=== PATIENT | male | born 2000 | race Caucasian/White ===

== ENCOUNTER 2019-04-22 20:29 | Observation (INO) | payer OTHER, SELFPAY ==
[2019-04-22 20:30] VITALS: BP 106/73; PULSE 92; RESP 15; TEMP 36.4; BMI 23.1
[2019-04-22] MEDS: 0.9% Normal Saline 1,000 ML 999 ML IV ×3 (21:38→23:45)
[2019-04-22 21:57] LABS: Anion Gap 13 (5-15); BUN 44 mg/dL (7-18); BUN/Creat Ratio 20.8 RATIO (10-20); Calcium,Total 10.4 mg/dL (8.5-10.1); Chloride 94 mmol/L (98-107); Creatinine, Serum 2.12 mg/dL (0.70-1.30); EST Glomerular Filtration Rate 42 mL/min (>60); Est Glom Filt Rate - Afr Amer 51 mL/min (>60); Estimated Creatinine Clearance 64.19 ml/min; Glucose 93 mg/dL (74-106); Potassium 3.6 mmol/L (3.5-5.1); Sodium Level 126 mmol/L (136-145)
[2019-04-22 22:22] LABS: Absolute Neutrophil Count 19.4 X10^3/uL (2.0-7.7); Basophil# 0.04 X10^3/uL; Basophil% 0.2 % (0-1); Eosinophil# 0.04 X10^3/uL; Eosinophils% 0.2 % (0-5); Hematocrit 49.5 % (40-54); Hemoglobin 17.2 g/dL (13.0-16.5); Lymphocyte % 6.2 % (19-41); Mean Corp Hgb Conc 34.7 g/dL (32-36); Mean Corpuscular Hgb 28.5 pg (27.0-32.0); Mean Corpuscular Volume 82.1 fL (80-94); Mean Platelet Vol. 11.1 fl (6.2-12.0); Monocyte# 1.47 X10^3/uL; Monocyte% 6.5 % (0-10); NRBC Flagged by Analyzer 0 % (0-5); Neutrophil # 19.36 X10^3/uL (2.7-7.7); Platelet Count 333 K/mm3 (150-450); RBC Distribution Width CV 13.8 % (11.6-14.6); RBC Distribution Width SD 40.3 fl (35.1-43.9); Red Blood Count 6.03 M/mm3 (4.6-6.2); White Blood Count 22.5 K/mm3 (4.4-11.0)
[2019-04-22 22:31] VITALS: BP 117/63; PULSE 71; RESP 19; O2SAT 100
[2019-04-22 22:53] LABS: CPK Total, Creatine Kinase 2726 U/L (39-308)
--- NOTE | 2019-04-22 23:25 | ED.VISSUMM ---
- ER Visit Summary Date of Service: 04/22/19 Chief Complaint: Leg cramping History of Present Illness: The patient is a 18 M presenting with bilateral leg cramping. Patient had 2 soccer practices today. He states he ran for 3 to 4 hours. He did not drink as much water as he should. He did not eat much today. He states that at the end of the second practice he started having severe leg cramping. He was barely able to ambulate. He denies chest pain or shortness of breath. Denies other complaints. Physical Examination: Vitals are stable. Patient is afebrile. Alert no acute distress. HEENT exam is unremarkable. Neck is supple. Lungs are clear and equal bilaterally. Heart is regular rate and rhythm. Abdomen is soft nontender nondistended. Extremities are unremarkable. Normal distal pulses Skin is warm and dry. No focal neurologic deficit. Remainder of exam is unremarkable. Emergency Department Course and Treatment: CBC shows white count 22.5. Chemistry showed sodium 126, CO2 19, BUN 44, creatinine 2.12. CK 2726. Patient was given IV fluids. Discussed with the hospitalist for admission. Disposition: Observation Impression: Rhabdomyolysis, NATASHA This note was generated with [employer] dictation software. It may contain incorrect words, spelling, and punctuation that were not noted in review of the chart prior to signing ED Disposition - Plan for ED Patient: Referrals: Care Physician,No Primary [Primary Care Provider] -
--- NOTE | 2019-04-22 23:27 | PCM.HP.STD ---
Problem List (1) ADHD Status: Chronic (2) Chronic stable asthma Status: Chronic (3) Acute kidney injury Status: Acute (4) Mild rhabdomyolysis Status: Acute History of Present Illness Date of Admission: 04/22/19 Chief Complaint: Leg cramps not able to walk or run during soccer practice much The patient is a 18 year old M was brought into ER for bilateral leg cramping's. Patient had to soccer practice today and was running for 3 to 4 hours. Patient was also dehydrated and feeling thirsty did not drink much water and his urine was dark yellow color and decreased in quantity and frequency in the morning. He was not able to run and was barely able to walk. Denies any symptoms of fever, chills or burning micturition. Patient has a history of ADHD and asthma. [] Past Medical History Past Medical History (Chronic Problems): Chronic Problems ADHD (Chronic) Chronic stable asthma (Chronic) Allergies No Known Allergies Allergy (Verified 04/22/19 20:34) Home Medications: Ambulatory Orders Medication Instructions Recorded Albuterol Inhaler [Ventolin Hfa 1 puff INHALATION Q4H PRN PRN 04/22/19 (SP)] Cetirizine HCl [Zyrtec] 10 mg PO DAILY 04/22/19 Guanfacine HCl [Intuniv] 3 mg PO DAILY 04/22/19 Lisdexamfetamine Dimesylate 70 mg PO DAILY 04/22/19 [Vyvanse] Montelukast [Singulair] 10 mg PO DAILY 04/22/19 Dextroamphetamine Sulfate 10 mg PO DAILY PRN PRN 04/23/19 Smoking Status: Never smoker - *Family History Paternal History Items: No pertinent history Review of Systems Constitutional: Denies: Chills, Fever, Weight Change HEENT: Denies: Head Aches, Sinus Congestion, Sinus Drainage Cardiovascular: Denies: Chest Pain, Palpitations Respiratory: Denies: Cough, Shortness of breath at rest, Sputum production Gastrointestinal: Denies: Abdominal Pain, Nausea, Vomiting Genitourinary: Denies: Dysuria Musculoskeletal: Reports: Leg Pain, Muscle pain. Denies: Joint Pain, Joint Tenderness Skin: Denies: Rash, Wounds Neurological: Denies: Numbness, Tingling, Focal weakness Psychiatric: Denies: Anxiety, Depression, Homicidal Ideations, Suicidal Ideations Hematologic/ Lymphatic: Denies: Easy Bruising, Easy Bleeding VTE Information - Inpt Only VTE Present on Admission: No VTE Mechan Device Prophylaxis: None VTE Pharm Prophylaxis ordered?: No Reason prophylaxis not ordered:: Procedure Not Indicated Patient Problems: Active and Suspected Problems Acute kidney injury (Acute) Mild rhabdomyolysis (Acute) - Physical Exam General: Alert, Oriented x3, Cooperative HEENT: Atraumatic, PERRLA, EOMI, Normocephalic Neck: Supple, No JVD, Negative Carotid Bruits Lungs: Clear to auscultation, Normal air movement, No rhonchi, No wheeze, No rales Cardiovascular: Regular rate, Regular Rhythm, Normal S1, Normal S2, No murmurs Abdomen: Bowel Sounds Present, Soft, Non Tender, Non-Distended Extremities: No edema, Capillary Refill Less than 3 Seconds Skin: No rashes, No breakdown Musculoskeletal: Tenderness - Mild calf muscle tenderness. Neurological: Cranial nerves II-XII grossly intact, Deep Tendon Reflexes 2+/4 and Symmetrical, Neuro grossly intact, Motor Exam 5/5 strength throughout Psych/Mental Status: Normal Affect, Appropriate Vital Signs Temp Pulse Resp BP Pulse Ox 97.5 F L 71 19 H 117/63 100 04/22/19 20:30 04/22/19 22:31 04/22/19 22:31 04/22/19 22:31 04/22/19 22:31 Oxygen Delivery Method Room Air Weight: 180 lb Body Mass Index (BMI) 23.1 Laboratory Tests Past 24 Hrs 04/22/19 04/22/19 04/22/19 21:28 21:28 21:28 WBC 22.5 H RBC 6.03 Hgb 17.2 H Hct 49.5 MCV 82.1 MCH 28.5 MCHC 34.7 RDW Std Deviation 40.3 RDW Coeff of Yo 13.8 Plt Count 333 MPV 11.1 Immature Gran % (Auto) 0.900 Neut % (Auto) 86.0 H Lymph % (Auto) 6.2 L [place] % (Auto) 6.5 Eos % (Auto) 0.2 Baso % (Auto) 0.2 Absolute Neuts (auto) 19.4 H Absolute Lymphs (auto) 1.40 Nucleated RBC % 0 Sodium 126 L Potassium 3.6 Chloride 94 L Carbon Dioxide 19.0 L Anion Gap 13 BUN 44 H Creatinine 2.12 H Estim Creat Clear Calc 64.19 Est GFR (MDRD) Af Amer 51 L Est GFR (MDRD) Non-Af 42 L BUN/Creatinine Ratio 20.8 H Glucose 93 Calcium 10.4 H Total Creatine Kinase 2726 H Assessment/Plan All Active Problems Acute kidney injury (Acute) Mild rhabdomyolysis (Acute) This 18-year-old gentleman was admitted with bilateral leg cramping with unable to run and barely ambulate with elevated BUN/creatinine 44/2.2 and total CK 2726 consistent with acute kidney injury with mild rhabdomyolysis. 1. Acute kidney injury most probably prerenal secondary to dehydration: Patient is being admitted on MedSurg floor. Patient had 2 L of mostly in ER and is going to get another liter of normal saline bolus. After that, continue IV fluid normal saline 150 mils per hour. Monitor intake and output. Monitor CK and BMP daily. UA is ordered. 2. Hyponatremia with hypochloremia, non-anion gap metabolic acidosis: Patient sodium is 126, chloride 94, CO2 19 with anion gap 13. Is mostly related to hypovolemia. IV fluid resuscitation. K. Dur 40 M EQ 1 dose ordered. Monitor BMP daily. 3. Mild rhabdomyolysis: As mentioned above. 4. Other chronic comorbidities include ADHD, chronic stable asthma: Patient is on dextroamphetamine, Singulair and other nerve pills. Home medication and sedation done. DVT prophylaxis: Low risk. Early ambulation encouraged. No prophylaxis indicated. Code Visit Inpatient E&M: 29218 Init Hosp L3
[2019-04-22 23:42] VITALS: BP 113/68; PULSE 78; RESP 19; O2SAT 100
[2019-04-23 00:55] VITALS: BMI 23.2
[2019-04-23 01:44] VITALS: BP 133/60; PULSE 84; RESP 18; TEMP 36.4; O2SAT 100
[2019-04-23 04:25] VITALS: BP 120/53; PULSE 53; RESP 18; TEMP 36.4; O2SAT 100
[2019-04-23 06:17] LABS: Mucous, Urine 0 SEEN /hpf (<or=2+); Red Blood Cells-Urine 0 SEEN /hpf (0-5); White Blood Cells 0 SEEN /hpf (0-5)
[2019-04-23 06:26] LABS: Color, Urine Yellow (Yellow); Glucose, Dipstick Normal (Normal); Ketone-Dipstick 50 mg/dl (Negative); Leukocyte Esterase-Dipstick Negative /ul (Negative); Nitrite-Dipstick Negative (Negative); Occult Blood-Urine Negative /ul (Negative); Protein-Dipstick 15 mg/dl (Negative); Specific Gravity, Urine 1.025 (1.002-1.030); Urine Bilirubin Dipstick Negative (Negative); Urine Clarity Clear (Clear); Urine Urobilinogen Normal (Normal)
[2019-04-23 06:36] LABS: Bacteria RARE /hpf (None Seen); Coarse Granular Cast 0-5 SEEN /lpf (0-5 /lpf); Hyaline Cast 0-5 SEEN /lpf (0-5); Squamous Epithelial Cells - UA 0-5 SEEN /hpf (0-5)
--- NOTE | 2019-04-23 06:58 | PCM.PROGNOTE ---
Patient Problems: Active and Suspected Problems Acute kidney injury (Acute) Mild rhabdomyolysis (Acute) Subjective: The patient is a 18-year-old male with a past medical history of asthma and ADHD who presented to the emergency department at [facility] on 04/22/2019 complaining of cramping in his legs with difficulty walking after running 3 to 4 hours in soccer practice. Vital signs at presentation to the emergency room were temperature 97.5, pulse rate 92, blood pressure 106/73, respiratory rate 15 and he was 100% saturated on room air. CBC was remarkable for an elevated white blood cell count at 22.5 with a left shift. Hemoglobin was 17.2 and platelets were within normal limits. Sodium was low at 126 and the chloride was low at 94. Serum bicarb was low at 19 and the BUN was elevated at 44 with a creatinine of 2.12. Calcium was high at 10.4 and the total CK was 2726. Urine was unremarkable other than the specific gravity was high at 1.025. Urine myoglobin was not ordered. He was given 2 L of normal saline in the emergency department and 1/3 L of normal saline following admission. Currently is on normal saline at 150 cc an hour. Afebrile, stable vital signs, heart rate was 53 when last checked. He is 100% saturated on room air. - Physical Exam Vital Signs Temp Pulse Resp BP Pulse Ox 97.6 F L 53 L 18 120/53 L 100 04/23/19 04:25 04/23/19 04:25 04/23/19 04:25 04/23/19 04:25 04/23/19 04:25 Oxygen Delivery Method Room Air Weight: 180 lb 15.992 oz Body Mass Index (BMI) 23.2 Laboratory Tests Past 24 Hrs 04/22/19 04/22/19 04/22/19 21:28 21:28 21:28 WBC 22.5 H RBC 6.03 Hgb 17.2 H Hct 49.5 MCV 82.1 MCH 28.5 MCHC 34.7 RDW Std Deviation 40.3 RDW Coeff of Yo 13.8 Plt Count 333 MPV 11.1 Immature Gran % (Auto) 0.900 Neut % (Auto) 86.0 H Lymph % (Auto) 6.2 L [place] % (Auto) 6.5 Eos % (Auto) 0.2 Baso % (Auto) 0.2 Absolute Neuts (auto) 19.4 H Absolute Lymphs (auto) 1.40 Nucleated RBC % 0 Sodium 126 L Potassium 3.6 Chloride 94 L Carbon Dioxide 19.0 L Anion Gap 13 BUN 44 H Creatinine 2.12 H Estim Creat Clear Calc 64.19 Est GFR (MDRD) Af Amer 51 L Est GFR (MDRD) Non-Af 42 L BUN/Creatinine Ratio 20.8 H Glucose 93 Calcium 10.4 H Total Creatine Kinase 2726 H Urine Color Urine Clarity Urine pH Ur Specific [place] Urine Protein Urine Glucose (UA) Urine Ketones Urine Occult Blood Urine Nitrite Urine Bilirubin Urine Urobilinogen Ur Leukocyte Esterase Urine RBC Urine WBC Ur Squamous Epith Cells Urine Bacteria Hyaline Casts Coarse Granular Casts Urine Mucus 04/23/19 Unknown WBC RBC Hgb Hct MCV MCH MCHC RDW Std Deviation RDW Coeff of Yo Plt Count MPV Immature Gran % (Auto) Neut % (Auto) Lymph % (Auto) [place] % (Auto) Eos % (Auto) Baso % (Auto) Absolute Neuts (auto) Absolute Lymphs (auto) Nucleated RBC % Sodium Potassium Chloride Carbon Dioxide Anion Gap BUN Creatinine Estim Creat Clear Calc Est GFR (MDRD) Af Amer Est GFR (MDRD) Non-Af BUN/Creatinine Ratio Glucose Calcium Total Creatine Kinase Urine Color Yellow Urine Clarity Clear Urine pH 5.0 Ur Specific [place] 1.025 Urine Protein 15 H Urine Glucose (UA) Normal Urine Ketones 50 H Urine Occult Blood Negative Urine Nitrite Negative Urine Bilirubin Negative Urine Urobilinogen Normal Ur Leukocyte Esterase Negative Urine RBC 0 SEEN Urine WBC 0 SEEN Ur Squamous Epith Cells 0-5 SEEN Urine Bacteria RARE Hyaline Casts 0-5 SEEN Coarse Granular Casts 0-5 SEEN Urine Mucus 0 SEEN Medical Necessity - Tobacco Use Smoking Status: Never smoker Assessment/Plan All Active Problems Acute kidney injury (Acute) Mild rhabdomyolysis (Acute)
[2019-04-23 08:07] LABS: Hematocrit 41.8 % (40-54); Mean Corp Hgb Conc 33.5 g/dL (32-36); Mean Corpuscular Hgb 28.3 pg (27.0-32.0); Mean Corpuscular Volume 84.6 fL (80-94); Mean Platelet Vol. 10.8 fl (6.2-12.0); Platelet Count 265 K/mm3 (150-450); RBC Distribution Width CV 14.1 % (11.6-14.6); RBC Distribution Width SD 43.9 fl (35.1-43.9); Red Blood Count 4.94 M/mm3 (4.6-6.2); White Blood Count 12.8 K/mm3 (4.4-11.0)
[2019-04-23 08:24] LABS: Anion Gap 8 (5-15); BUN 32 mg/dL (7-18); BUN/Creat Ratio 26.9 RATIO (10-20); Calcium,Total 8.9 mg/dL (8.5-10.1); Chloride 106 mmol/L (98-107); Creatinine, Serum 1.19 mg/dL (0.70-1.30); EST Glomerular Filtration Rate 82 mL/min (>60); Est Glom Filt Rate - Afr Amer 99 mL/min (>60); Estimated Creatinine Clearance 114.99 ml/min; Glucose 82 mg/dL (74-106); Magnesium 2.4 mg/dL (1.6-2.6); Phosphorus 3.7 mg/dL (2.5-4.9); Potassium 3.8 mmol/L (3.5-5.1); Sodium Level 135 mmol/L (136-145)
[2019-04-23 08:43] LABS: CPK Total, Creatine Kinase 4545 U/L (39-308)
[2019-04-23 09:10] VITALS: BP 101/49; PULSE 76; RESP 14; TEMP 36.3; O2SAT 100
--- NOTE | 2019-04-23 09:49 | PCM.DC ---
- Discharge Diagnoses Current Active Problems: Current Active and Chronic Problems ADHD (Chronic) Chronic stable asthma (Chronic) Acute kidney injury (Acute) Mild rhabdomyolysis (Acute) You will use the following diet at home:: No restrictions Your food should be the consistency of: Regular Your liquids should be the consistency of: Regular/Thin Discharge Activity: - - Rest and do not exert yourself until Thursday or Thursday. You can start practising on thursday or Thursday. Call your doctor if you observe: Fever of 101 or Higher, Shortness of breath, Dizziness, Fainting spells, Calf discomfort, Uncontrolled pain, - - extreme fatigue, recurrent muscle pain, decreased urine output, dark tea colored urine Additional Instructions: You must drink enough fluid to keep your urine a very pale yellow/almost clear. If you urine is bright yellow or orange or brown you need to drink more. You are taking 2 different forms of Amphetammine. A long acting drug you take once a day and short acting amphetamine as needed. Do not take the short acting amphetamine for at least 4 hours prior to practise or games. Amphetamines can cause rhabdomyolysis which is the breakdown of muscle........this leads to an increased breakdown product of muscle called creatine kinase in the blood and this can cause kidney failure. Continue to drink a lot of water today. If the leg pains increase as the day goes on come back to the ER. Have a great time in [place]! Pending Tests on Discharge: none Allergies/Adverse Reactions: Allergies No Known Allergies Allergy (Verified 04/22/19 20:34) Medications to take at Discharge Albuterol Inhaler [Ventolin Hfa] 1 puff INHALATION Q4H PRN PRN 04/22/19 Cetirizine HCl [Zyrtec] 10 mg PO DAILY 04/22/19 Guanfacine HCl [Intuniv] 3 mg PO DAILY 04/22/19 Lisdexamfetamine Dimesylate [Vyvanse] 70 mg PO DAILY 04/22/19 Montelukast [Singulair] 10 mg PO DAILY 04/22/19 Dextroamphetamine Sulfate 10 mg PO DAILY PRN PRN 04/23/19 Primary Care Physician: Care Physician,No Primary [Primary Care Provider] - Test Results: Test results from this visit will be discussed in further detail at your follow-up appointment, if applicable. Proposed Discharge Date: 04/23/19
--- NOTE | 2019-04-23 10:05 | PCM.DC.SUM ---
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) - for ADHD ADHD (Chronic) Stable asthma (Chronic) Hospital Course and Treatment Imaging Results: Laboratory Results - last 24 hr 04/22/19 04/22/19 04/22/19 21:28 21:28 21:28 WBC 22.5 H RBC 6.03 Hgb 17.2 H Hct 49.5 MCV 82.1 MCH 28.5 MCHC 34.7 RDW Std Deviation 40.3 RDW Coeff of Yo 13.8 Plt Count 333 MPV 11.1 Immature Gran % (Auto) 0.900 Neut % (Auto) 86.0 H Lymph % (Auto) 6.2 L [place] % (Auto) 6.5 Eos % (Auto) 0.2 Baso % (Auto) 0.2 Absolute Neuts (auto) 19.4 H Absolute Lymphs (auto) 1.40 Nucleated RBC % 0 Sodium 126 L Potassium 3.6 Chloride 94 L Carbon Dioxide 19.0 L Anion Gap 13 BUN 44 H Creatinine 2.12 H Estim Creat Clear Calc 64.19 Est GFR (MDRD) Af Amer 51 L Est GFR (MDRD) Non-Af 42 L BUN/Creatinine Ratio 20.8 H Glucose 93 Calcium 10.4 H Phosphorus Magnesium Total Creatine Kinase 2726 H Urine Color Urine Clarity Urine pH Ur Specific [place] Urine Protein Urine Glucose (UA) Urine Ketones Urine Occult Blood Urine Nitrite Urine Bilirubin Urine Urobilinogen Ur Leukocyte Esterase Urine RBC Urine WBC Ur Squamous Epith Cells Urine Bacteria Hyaline Casts Coarse Granular Casts Urine Mucus 04/23/19 04/23/19 04/23/19 07:42 07:42 07:42 WBC 12.8 H RBC 4.94 Hgb 14.0 Hct 41.8 MCV 84.6 MCH 28.3 MCHC 33.5 RDW Std Deviation 43.9 RDW Coeff of Yo 14.1 Plt Count 265 MPV 10.8 Immature Gran % (Auto) Neut % (Auto) Lymph % (Auto) [place] % (Auto) Eos % (Auto) Baso % (Auto) Absolute Neuts (auto) Absolute Lymphs (auto) Nucleated RBC % Sodium 135 L Potassium 3.8 Chloride 106 Carbon Dioxide 21.0 Anion Gap 8 BUN 32 H Creatinine 1.19 Estim Creat Clear Calc 114.99 Est GFR (MDRD) Af Amer 99 Est GFR (MDRD) Non-Af 82 BUN/Creatinine Ratio 26.9 H Glucose 82 Calcium 8.9 Phosphorus 3.7 Magnesium 2.4 Total Creatine Kinase 4545 H Urine Color Urine Clarity Urine pH Ur Specific [place] Urine Protein Urine Glucose (UA) Urine Ketones Urine Occult Blood Urine Nitrite Urine Bilirubin Urine Urobilinogen Ur Leukocyte Esterase Urine RBC Urine WBC Ur Squamous Epith Cells Urine Bacteria Hyaline Casts Coarse Granular Casts Urine Mucus 04/23/19 Unknown WBC RBC Hgb Hct MCV MCH MCHC RDW Std Deviation RDW Coeff of Yo Plt Count MPV Immature Gran % (Auto) Neut % (Auto) Lymph % (Auto) [place] % (Auto) Eos % (Auto) Baso % (Auto) Absolute Neuts (auto) Absolute Lymphs (auto) Nucleated RBC % Sodium Potassium Chloride Carbon Dioxide Anion Gap BUN Creatinine Estim Creat Clear Calc Est GFR (MDRD) Af Amer Est GFR (MDRD) Non-Af BUN/Creatinine Ratio Glucose Calcium Phosphorus Magnesium Total Creatine Kinase Urine Color Yellow Urine Clarity Clear Urine pH 5.0 Ur Specific [place] 1.025 Urine Protein 15 H Urine Glucose (UA) Normal Urine Ketones 50 H Urine Occult Blood Negative Urine Nitrite Negative Urine Bilirubin Negative Urine Urobilinogen Normal Ur Leukocyte Esterase Negative Urine RBC 0 SEEN Urine WBC 0 SEEN Ur Squamous Epith Cells 0-5 SEEN Urine Bacteria RARE Hyaline Casts 0-5 SEEN Coarse Granular Casts 0-5 SEEN Urine Mucus 0 SEEN none Operations: None Procedures: None Summary of Care Provided: The patient is a 18-year-old male with a past medical history of asthma and ADHD who presented to the emergency department at [facility] on 04/22/2019 complaining of cramping in his legs with difficulty walking due to pain after running 3 to 4 hours in soccer practice. Vital signs at presentation to the emergency room were temperature 97.5, pulse rate 92, blood pressure 106/73, respiratory rate 15 and he was 100% saturated on room air. CBC was remarkable for an elevated white blood cell count at 22.5 with a left shift. Hemoglobin was 17.2 and platelets were within normal limits. Sodium was low at 126 and the chloride was low at 94. Serum bicarb was low at 19 and the BUN was elevated at 44 with a creatinine of 2.12. Calcium was high at 10.4 and the total CK was 2726. Urine was unremarkable other than the specific gravity was high at 1.025. Urine myoglobin was not ordered. He was given 2 L of normal saline in the emergency department and a third liter bolus following admission. He was then started on NS at 150 cc/hr. repeat lab on 04/23/2019 showed a white blood cell count of 12.8, down from 22.5 at admission with a hemoglobin of 14 and normal platelets. The sodium was up to 135 following hydration from 126 at admission. Metabolic acidosis had resolved and the BUN was down to 32 with a creatinine of 1.19, down from 2.12 at admission. The pain in his legs was much improved and he was able to ambulate without difficulty. He said they felt like they did after a normal practise. An order was placed for an additional 2 L of NS at 500 cc/hr. He was discharged home and was clear to fly to [place] on 04/24/19 with his soccer team but, instructed not to participate in any exertional activities until 04/26. Since dextroamphetamine can cause rhabdomyolysis he was advised to continue the long-acting amphetamine once daily but not to use short acting dextroamphetamine for at least 4 hours prior to any exertion. He was advised to stay well-hydrated and drink enough water to keep his urine and very pale yellow to clear, especially on days when he is exercising. He will return to the emergency room if his leg pain should escalate following discharge or he is unable to urinate. PHYSICAL EXAM: GENERAL: alert, oriented X 3, Cooperative, NAD ORAL: moist mucosa, no mucosal lesions NECK: No JVD, supple, trachea midline LUNGS: CTA, symmetric chest expansion HEART: RRR, Normal S1 and S2, no rub, no gallop ABDOMEN: soft, NT, ND, BS present, no guarding with palpation EXTREMITIES: no edema, no cyanosis, no calf tenderness, the muscles of the LE's are soft with no pain with compression and there is no evidence of compartment syndrome. SKIN: No rashes, no breakdown NEUROLOGIC: no focal neurologic deficits PSYCH: appropriate, normal affect, pleasant This note was generated with [employer] dictation software. It may contain incorrect words, spelling, and punctuation that were not noted in checking the note before signing. Patient Problems: Active and Suspected Problems Exertional rhabdomyolysis (Acute) Ketonuria (Acute) Dehydration after exertion (Acute) Hyponatremia (Acute) - Physical Exam Vital Signs Temp Pulse Resp BP Pulse Ox 97.4 F L 76 14 101/49 L 100 04/23/19 09:10 04/23/19 09:10 04/23/19 09:10 04/23/19 09:10 04/23/19 09:10 Oxygen Delivery Method Room Air Weight: 180 lb 15.992 oz Body Mass Index (BMI) 23.2 Intake and Output for Last 24 Hours 04/21/19 04/22/19 04/23/19 23:59 23:59 23:59 Intake Total 2700 / 2700 Balance 2700 / 2700 Laboratory Tests Past 24 Hrs 04/22/19 04/22/19 04/22/19 21:28 21:28 21:28 WBC 22.5 H RBC 6.03 Hgb 17.2 H Hct 49.5 MCV 82.1 MCH 28.5 MCHC 34.7 RDW Std Deviation 40.3 RDW Coeff of Yo 13.8 Plt Count 333 MPV 11.1 Immature Gran % (Auto) 0.900 Neut % (Auto) 86.0 H Lymph % (Auto) 6.2 L [place] % (Auto) 6.5 Eos % (Auto) 0.2 Baso % (Auto) 0.2 Absolute Neuts (auto) 19.4 H Absolute Lymphs (auto) 1.40 Nucleated RBC % 0 Sodium 126 L Potassium 3.6 Chloride 94 L Carbon Dioxide 19.0 L Anion Gap 13 BUN 44 H Creatinine 2.12 H Estim Creat Clear Calc 64.19 Est GFR (MDRD) Af Amer 51 L Est GFR (MDRD) Non-Af 42 L BUN/Creatinine Ratio 20.8 H Glucose 93 Calcium 10.4 H Phosphorus Magnesium Total Creatine Kinase 2726 H Urine Color Urine Clarity Urine pH Ur Specific [place] Urine Protein Urine Glucose (UA) Urine Ketones Urine Occult Blood Urine Nitrite Urine Bilirubin Urine Urobilinogen Ur Leukocyte Esterase Urine RBC Urine WBC Ur Squamous Epith Cells Urine Bacteria Hyaline Casts Coarse Granular Casts Urine Mucus 04/23/19 04/23/19 04/23/19 07:42 07:42 07:42 WBC 12.8 H RBC 4.94 Hgb 14.0 Hct 41.8 MCV 84.6 MCH 28.3 MCHC 33.5 RDW Std Deviation 43.9 RDW Coeff of Yo 14.1 Plt Count 265 MPV 10.8 Immature Gran % (Auto) Neut % (Auto) Lymph % (Auto) [place] % (Auto) Eos % (Auto) Baso % (Auto) Absolute Neuts (auto) Absolute Lymphs (auto) Nucleated RBC % Sodium 135 L Potassium 3.8 Chloride 106 Carbon Dioxide 21.0 Anion Gap 8 BUN 32 H Creatinine 1.19 Estim Creat Clear Calc 114.99 Est GFR (MDRD) Af Amer 99 Est GFR (MDRD) Non-Af 82 BUN/Creatinine Ratio 26.9 H Glucose 82 Calcium 8.9 Phosphorus 3.7 Magnesium 2.4 Total Creatine Kinase 4545 H Urine Color Urine Clarity Urine pH Ur Specific [place] Urine Protein Urine Glucose (UA) Urine Ketones Urine Occult Blood Urine Nitrite Urine Bilirubin Urine Urobilinogen Ur Leukocyte Esterase Urine RBC Urine WBC Ur Squamous Epith Cells Urine Bacteria Hyaline Casts Coarse Granular Casts Urine Mucus 04/23/19 Unknown WBC RBC Hgb Hct MCV MCH MCHC RDW Std Deviation RDW Coeff of Yo Plt Count MPV Immature Gran % (Auto) Neut % (Auto) Lymph % (Auto) [place] % (Auto) Eos % (Auto) Baso % (Auto) Absolute Neuts (auto) Absolute Lymphs (auto) Nucleated RBC % Sodium Potassium Chloride Carbon Dioxide Anion Gap BUN Creatinine Estim Creat Clear Calc Est GFR (MDRD) Af Amer Est GFR (MDRD) Non-Af BUN/Creatinine Ratio Glucose Calcium Phosphorus Magnesium Total Creatine Kinase Urine Color Yellow Urine Clarity Clear Urine pH 5.0 Ur Specific [place] 1.025 Urine Protein 15 H Urine Glucose (UA) Normal Urine Ketones 50 H Urine Occult Blood Negative Urine Nitrite Negative Urine Bilirubin Negative Urine Urobilinogen Normal Ur Leukocyte Esterase Negative Urine RBC 0 SEEN Urine WBC 0 SEEN Ur Squamous Epith Cells 0-5 SEEN Urine Bacteria RARE Hyaline Casts 0-5 SEEN Coarse Granular Casts 0-5 SEEN Urine Mucus 0 SEEN Discharge Activity: - - Rest and do not exert yourself until Thursday or Thursday. You can start practising on thursday or Thursday. Call your doctor if you observe: Fever of 101 or Higher, Shortness of breath, Dizziness, Fainting spells, Calf discomfort, Uncontrolled pain, - - extreme fatigue, recurrent muscle pain, decreased urine output, dark tea colored urine Home Medications: Medications to take at Discharge Albuterol Inhaler [Ventolin Hfa] 1 puff INHALATION Q4H PRN PRN 04/22/19 Cetirizine HCl [Zyrtec] 10 mg PO DAILY 04/22/19 Guanfacine HCl [Intuniv] 3 mg PO DAILY 04/22/19 Lisdexamfetamine Dimesylate [Vyvanse] 70 mg PO DAILY 04/22/19 Montelukast [Singulair] 10 mg PO DAILY 04/22/19 Dextroamphetamine Sulfate 10 mg PO DAILY PRN PRN 04/23/19 Primary Care Physician: Care Physician,No Primary [Primary Care Provider] - Minutes spent on discharge:: 30 Medical Necessity - Tobacco Use Smoking Status: Never smoker Tobacco Use: Non-smoker Meaningful Use Info Meaningful Use Diagnoses (Choose all that apply): None applicable Code Visit Inpatient E&M: 54162 Disch Hosp
[2019-04-23] MEDS: 0.9% Normal Saline 1,000 ML 500 ML IV ×2 (10:25→12:25)
== END 2019-04-23 15:09 | disposition home or self-care (01) ==
LOC: ED 21:49 → MS3 04-23 00:30
PROVIDERS: Admitting Provider Internal Medicine; Emergency Provider Emergency Medicine; Referring Provider Internal Medicine; Visit Provider Internal Medicine
DX: M62.82 Rhabdomyolysis (principal); E86.0 Dehydration; J45.909 Unspecified asthma, uncomplicated; F90.9 Attention-deficit hyperactivity disorder, unspecified type; Z79.899 Other long term (current) drug therapy; N17.9 Acute kidney failure, unspecified; E87.1 Hypo-osmolality and hyponatremia; E87.2 Acidosis; R82.4 Acetonuria
CPT/HCPCS: 36415; 80048; 81001; 82550; 83735; 84100; 85025; 85027; 96360; 96361; 99218; 99285; J7030; A4216; G0378

== ENCOUNTER → 2019-04-24 08:22 | Outpatient (CLI) | payer OTHER, SELFPAY ==
[2019-04-23 00:55] VITALS: BMI 23.2
[2019-04-24 08:29] LABS: Anion Gap 7 (5-15); BUN 33 mg/dL (7-18); CPK Total, Creatine Kinase 6797 U/L (39-308); Calcium,Total 8.9 mg/dL (8.5-10.1); Chloride 109 mmol/L (98-107); Creatinine, Serum 0.97 mg/dL (0.70-1.30); EST Glomerular Filtration Rate 105 mL/min (>60); Est Glom Filt Rate - Afr Amer 127 mL/min (>60); Glucose 78 mg/dL (74-106); Sodium Level 140 mmol/L (136-145)
== END ==
PROVIDERS: Family Provider Family Medicine; PCP Family Medicine; Referring Provider Family Medicine; Visit Provider Internal Medicine
DX: N17.9 Acute kidney failure, unspecified (principal); M62.82 Rhabdomyolysis; E87.1 Hypo-osmolality and hyponatremia
CPT/HCPCS: 36415; 80048; 82550